=== PATIENT | female | born 1990 | race African-American/Black ===

== ENCOUNTER 2017-09-16 18:36 | Emergency (ER) | payer MEDICAID, OTHER ==
--- NOTE | 2017-09-16 19:31 | EDM.PDOC ---
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 Stated Complaint: /BLEEDING Time Seen by Provider: 09/16/17 18:45 - History of Present Illness INITIAL COMMENTS - FREE TEXT/NARRATIVE: HISTORY AND PHYSICAL: History of present illness: Patient is 26-year-old black female with first trimester she's unsure of dates because her menses had not resumed from her prior as she was still breast-feeding she has had one visit and has confirmed prior she is ABO Rh- and presents with some mild cramping and scant vaginal bleeding she's had no trauma no nausea vomiting or other complaints Review of systems: As per history of present illness and below otherwise all systems reviewed and negative. Past medical history: As per history of present illness and as reviewed below otherwise noncontributory. Surgical history: As per history of present illness and as reviewed below otherwise noncontributory. Social history: No reported history of drug or alcohol abuse. Family history: As per history of present illness and as reviewed below otherwise noncontributory. Physical exam: HEENT: Atraumatic, normocephalic, pupils reactive, negative for conjunctival pallor or scleral icterus, mucous membranes moist, throat clear, neck supple, nontender, trachea midline. Lungs: Clear to auscultation, breath sounds equal bilaterally, chest nontender. Heart: S1S2, regular, negative for clicks, rubs, or JVD. Abdomen: Soft, nondistended, nontender. Negative for masses or hepatosplenomegaly. Negative for costovertebral tenderness. Pelvis: Stable nontender. Genitourinary: Deferred. Rectal: Deferred. Extremities: Atraumatic, negative for cords or calf pain. Neurovascular unremarkable. Neuro: Awake, alert, oriented. Cranial nerves II through XII unremarkable. Cerebellum unremarkable. Motor and sensory unremarkable throughout. Exam nonfocal. Diagnostics: CBC ABO Rh quantitative beta pelvic ultrasound Therapeutics: RhoGAM as per protocol Impression: #1 first trimester (bleeding) with history of Rh- #2 threatened Definitive disposition and diagnosis as appropriate pending reevaluation and review of above. 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: Endocrine/Metabolic History: Reports: Other (See Below) Other Endocrine/Metabolic History: Graves Disease - Past Surgical History GI Surgical History: Reports: Other (See Below) Other GI Surgeries/Procedures: Bowel surgery Endocrine Surgical History: Reports: Other (See Below) Other Endocrine Surgeries/Procedures: Thyroid Ablasion Social & Family History - Family History Family Medical History: Noncontributory - Tobacco Use Smoking Status *Q: Never Smoker - Recreational Drug Use Recreational Drug Use: No ED ROS GENERAL - Review of Systems Review Of Systems: ROS reveals no pertinent complaints other than HPI. ED EXAM, GENERAL - Physical Exam Exam: See Below (See dictation) Course - Vital Signs Last Recorded V/S: Last Vital Signs Temp 36.7 C 09/16/17 19:00 Pulse 60 09/16/17 21:26 Resp 14 09/16/17 21:26 BP 122/72 09/16/17 21:26 Pulse Ox 98 09/16/17 21:26 - Orders/Labs/Meds Labs: Laboratory Tests 09/16/17 09/16/17 09/16/17 Range/Units 19:23 19:23 19:23 WBC 6.85 (4.0-11.0) K/uL RBC 4.49 (4.30-5.90) M/uL Hgb 13.4 (12.0-16.0) g/dL Hct 38.6 (36.0-46.0) % MCV 86.0 (80.0-98.0) fL MCH 29.8 (27.0-32.0) pg MCHC 34.7 (31.0-37.0) g/dL RDW Std Deviation 38.8 (28.0-62.0) fl RDW Coeff of Amrit 12 (11.0-15.0) % Plt Count 246 (150-400) K/uL MPV 9.50 (7.40-12.00) fL Neut % (Auto) 62.5 (48.0-80.0) % Lymph % (Auto) 28.9 (16.0-40.0) % [place] % (Auto) 7.6 (0.0-15.0) % Eos % (Auto) 0.7 (0.0-7.0) % Baso % (Auto) 0.3 (0.0-1.5) % Neut # (Auto) 4.3 (1.4-5.7) K/uL Lymph # (Auto) 2.0 (0.6-2.4) K/uL [place] # (Auto) 0.5 (0.0-0.8) K/uL Eos # (Auto) 0.1 (0.0-0.7) K/uL Baso # (Auto) 0.0 (0.0-0.1) K/uL Nucleated RBC % 0.0 /100WBC Nucleated RBCs # 0 K/uL HCG, Quant 52174.0 mIU/mL Blood Type Cancelled Antibody Screen NEGATIVE Departure - Departure Time of Disposition: 00:13 Disposition: Home, Self-Care 01 Clinical Impression: Multiple gestation, First trimester - Discharge Information Instructions: Multiple , First Trimester of , [id number] Referrals: Nimisha Bailey MD [Primary Care Provider] - Forms: ED Department Discharge
--- NOTE | 2017-09-17 14:54 | US ---
EXAM DATE: 09/16/17 PATIENT'S AGE: 26 Patient: DAIN OVALLE Facility: [place], [place] Site . Site : 1990 Study: US OB Pelvis [id number] 7:56:42 PM Ordering Physician: Ramón Govea Final Report: INDICATION: Vaginal spotting TECHNIQUE: Ultrasound OB pelvis transvaginal. Real time soria scale imaging of the pelvis was performed. COMPARISON: None FINDINGS: There are 2 intrauterine gestational sacs present. The left gestational sac A has a small yolk sac seen. It has a mean diameter of 9 mm with an estimated gestational age of 5 weeks, 3 days. The right gestational sac B has no yolk sac or pole identified. It has a mean sac diameter of 8 mm with estimated gestational age of 5 weeks, 3 days. The placenta has not yet developed. The gestational sac has a normal appearance and there is no evidence of a perigestational hemorrhage. The amount of fluid within the sacs appear appropriate for gestational age. The cervix is closed. The myometrium appears normal. The ovaries are of normal size. A corpus luteal cyst is present in the right ovary. A small amount of ascites noted. IMPRESSION: 1. By the 2012 Society of Radiologists in Ultrasound consensus panel criteria, there are 2 intrauterine gestational sacs of approximately 5 weeks, 3 days in age and is of unknown viability. Gestational sac A has a yolk sac demonstrated. Followup beta HCG and ultrasound is recommended. Dictated by Randy Martin MD @ 09/16/2017 8:13:11 PM Dictated by: Randy Martin MD @ 09/16/2017 20:13:18 (Electronic Signature) Report Signed by Proxy. CARIDAD
== END 2017-09-16 21:15 | disposition home or self-care (01) ==
LOC: MW.ED 18:36
DX: O20.0 Threatened abortion (principal); Z79.899 Other long term (current) drug therapy; Z91.040 Latex allergy status
CPT/HCPCS: 36415; 76801; 84702; 85025; 86850; 96372; 99283; J2790; 99282